=== PATIENT | female | born 1935 | race Caucasian/White ===

== ENCOUNTER 2021-03-03 08:28 | Day surgery (SDC) | payer MEDICARE, BC ==
[2021-03-03] MEDS ORDERED: Midazolam 1 MG/ML 2 ML SDV IV ONE (08:29)
[2021-03-03] MEDS ORDERED: Sodium Chloride 0.9% 10 ML Syringe IV ONE (08:29)
[2021-03-03] MEDS ORDERED: Dexamethasone 4 MG/ML SDV IV ONE (08:29)
[2021-03-03] MEDS ORDERED: Sodium Chloride 0.9% 10 ML Syringe FLUSH PRN (09:15)
[2021-03-03] MEDS ORDERED: Cataract Ophth Solution EYELF ONE (09:15)
[2021-03-03] MEDS ORDERED: Moxifloxacin 0.5% Ophth Soln 3 ML Bottle EYELF ONE (09:15)
[2021-03-03] MEDS ORDERED: Acetaminophen 325 MG Tab PO PRN (09:15)
[2021-03-03] MEDS ORDERED: Timolol Maleate 0.5% Ophth Soln 5 ML Bottle EYELF ONE (09:15)
[2021-03-03] MEDS ORDERED: Proparacaine 0.5% Ophth Soln 15 ML Bottle EYELF ONE (09:15)
[2021-03-03] MEDS ORDERED: Tropicamide 1% Ophth Soln 15 ML Bottle EYELF ONE (09:15)
[2021-03-03] MEDS ORDERED: Phenylephrine 10% Ophth Soln 5 ML Bot EYELF ONE (09:15)
[2021-03-03] MEDS ORDERED: Ondansetron 4 MG/2 ML SDV IVPUSH PRN (09:15)
[2021-03-03] MEDS ORDERED: Povidone-Iodine 5% Sterile Ophth Soln 30 ML Bottle EYELF ONE ×2 (09:15→10:32)
[2021-03-03] MEDS ORDERED: Acetaminophen/Codeine 300-30 MG Tab PO PRN (09:15)
[2021-03-03] MEDS ORDERED: Tetracaine HCl/PF 0.5% 4 ML Bottle EYELF ONE (10:31)
[2021-03-03] MEDS ORDERED: Apraclonidine 0.5% Ophth Soln 5 ML Bot EYELF ONE (10:32)
[2021-03-03] MEDS ORDERED: Diclofenac Sodium 0.1% Ophth Soln 5 ML Bottle EYELF ONE (10:32)
[2021-03-03] MEDS ORDERED: Vancomycin 500 MG SDV EYELF ONE (10:33)
[2021-03-03] MEDS ORDERED: Dexamethasone/Neomycin/Polymyxin B Ophth Oint 3.5 GM Tube EYELF ONE (10:33)
[2021-03-03] MEDS ORDERED: Balanced Salt Solution Ophth Irrig 500 ML Bottle IOCULAR ONE (10:33)
[2021-03-03] MEDS ORDERED: Chondroitin Sulfate/Hyaluronate Sodium Ophth Inj 0.75 ML Syringe EYELF ONE (10:33)
[2021-03-03] MEDS ORDERED: Lidocaine 1% 30 ML SDV ONE (10:33)
[2021-03-03] MEDS ORDERED: Balanced Salt Solution Ophth Irrig 15 ML Bottle EYELF ONE (10:39)
--- NOTE | 2021-03-04 06:57 | OR ---
DATE: 03/03/2021 PREOPERATIVE DIAGNOSIS: Visually significant mixed cataract, left eye. POSTOPERATIVE DIAGNOSIS: Visually significant mixed cataract, left eye. PROCEDURE: Extracapsular cataract extraction with intraocular lens implant, left eye. ANESTHESIA: Topical/local MAC. COMPLICATIONS: None. INDICATION: Ms. Alcantara was seen in the clinic. She has complained of difficulty with television, books, magazines, newspapers, pill bottles, difficulty driving. She saw her regular thermoforming machine operator. Dr. Alaniz was not able to improve her vision with a change in glasses. Examination revealed mixed cataract. I explained options, offered cataract surgery, and I explained risks including the potential for infection, retinal detachment, loss of vision, need for additional surgery, amongst others. We have discussed implant options. She has requested a mono focal implant. She is comfortable wearing glasses following surgery if necessary. OPERATIVE DESCRIPTION: After informed consent was obtained and the risks, benefits, and alternatives were explained, the patient was brought to the operative suite and topical anesthesia was administered. The patient was then prepped and draped in the sterile fashion and attention was placed on the left eye. A sterile lid speculum was placed into the left eye to allow operative exposure. A full-thickness paracentesis was made in the temporal portion of the operative eye. Preservative-free lidocaine 0.1 mL was injected into the anterior chamber followed by viscoelastic. A full-thickness corneal incision was then made into the anterior chamber. A bent needle cystotome was used to create a small jerome in the anterior capsule. The capsulorrhexis forceps was then used to create a 360-degree curvilinear capsulorrhexis. The nucleus was then removed using a phacoemulsification handpiece and the remaining cortical material was then removed with irrigation and aspiration handpiece. Following removal of the cortical material, the capsular bag was then inspected and noted to be free of any holes or tears. Viscoelastic was then injected into the capsular bag and the intraocular lens was inserted into the capsular bag. The viscoelastic material was then removed from both the anterior and posterior chambers and from behind the IOL. The lens and capsular bag were then reinspected. The IOL was well centered and the capsular bag intact. The wound and paracentesis sites were inspected and hydrated with balanced saline solution. Both were found to be self- sealing. The intraocular pressure was assessed digitally and found to be within normal range. A good red reflex was noted at the completion of the procedure. No complications occurred during the operation. At the completion of the procedure, Maxitrol, Voltaren, and Iopidine drops were placed into the operative eye. A sterile eye shield was placed over the operative eye and the patient was transported to the postoperative recovery area having tolerated the procedure well. Postoperative instructions were given along with a postoperative appointment. The patient was advised to call with any questions or concerns. [facility] /[id number]
== END 2021-03-03 11:40 | disposition home or self-care (01) ==
LOC: DL.SDS 08:28
PROVIDERS: ATTEND Ophthalmology
DX: H26.8 Other specified cataract (principal); D64.9 Anemia, unspecified; N18.9 Chronic kidney disease, unspecified; I48.91 Unspecified atrial fibrillation; E66.9 Obesity, unspecified; K21.9 Gastro-esophageal reflux disease without esophagitis; I12.9 Hypertensive chronic kidney disease with stage 1 through stage 4 chronic kidney disease, or unspecified chronic kidney disease; Z98.890 Other specified postprocedural states; Z87.891 Personal history of nicotine dependence; Z79.01 Long term (current) use of anticoagulants; Z79.899 Other long term (current) drug therapy; Z68.29 Body mass index [BMI] 29.0-29.9, adult
CPT/HCPCS: 00142; A9270-GY; J1100; J2250; J3370; V2632

== ENCOUNTER 2021-03-10 07:26 | Day surgery (SDC) | payer MEDICARE, BC ==
[2021-03-10] MEDS ORDERED: Dexamethasone 4 MG/ML SDV IV ONE (07:27)
[2021-03-10] MEDS ORDERED: Midazolam 1 MG/ML 2 ML SDV IV ONE (07:27)
[2021-03-10] MEDS ORDERED: Sodium Chloride 0.9% 10 ML Syringe IV ONE (07:27)
[2021-03-10] MEDS ORDERED: Cataract Ophth Solution EYERT ONE (08:14)
[2021-03-10] MEDS ORDERED: Ondansetron 4 MG/2 ML SDV IVPUSH PRN (08:30)
[2021-03-10] MEDS ORDERED: Moxifloxacin 0.5% Ophth Soln 3 ML Bottle EYERT ONE (08:30)
[2021-03-10] MEDS ORDERED: Phenylephrine 10% Ophth Soln 5 ML Bot EYERT PRN (08:30)
[2021-03-10] MEDS ORDERED: Timolol Maleate 0.5% Ophth Soln 5 ML Bottle EYERT ONE (08:30)
[2021-03-10] MEDS ORDERED: Proparacaine 0.5% Ophth Soln 15 ML Bottle EYERT ONE (08:30)
[2021-03-10] MEDS ORDERED: Tobramycin 0.3% Ophth Drops 5 ML Bottle EYERT ONE (08:30)
[2021-03-10] MEDS ORDERED: Acetaminophen/Codeine 300-30 MG Tab PO PRN (08:30)
[2021-03-10] MEDS ORDERED: Tropicamide 1% Ophth Soln 15 ML Bottle EYERT ONE (08:30)
[2021-03-10] MEDS ORDERED: Povidone-Iodine 5% Sterile Ophth Soln 30 ML Bottle EYERT ONE ×2 (08:30→09:21)
[2021-03-10] MEDS ORDERED: Acetaminophen 325 MG Tab PO PRN (08:30)
[2021-03-10] MEDS ORDERED: Sodium Chloride 0.9% 10 ML Syringe FLUSH PRN (08:30)
[2021-03-10] MEDS ORDERED: Tetracaine HCl/PF 0.5% 4 ML Bottle EYERT ONE (09:20)
[2021-03-10] MEDS ORDERED: Dexamethasone/Neomycin/Polymyxin B Ophth Oint 3.5 GM Tube EYERT ONE (09:21)
[2021-03-10] MEDS ORDERED: Diclofenac Sodium 0.1% Ophth Soln 5 ML Bottle EYERT ONE (09:21)
[2021-03-10] MEDS ORDERED: Lidocaine 1% 30 ML SDV ONE (09:21)
[2021-03-10] MEDS ORDERED: Apraclonidine 0.5% Ophth Soln 5 ML Bot EYERT ONE (09:21)
[2021-03-10] MEDS ORDERED: Balanced Salt Solution Ophth Irrig 500 ML Bottle IOCULAR ONE (09:22)
[2021-03-10] MEDS ORDERED: Chondroitin Sulfate/Hyaluronate Sodium Ophth Inj 0.75 ML Syringe EYERT ONE (09:22)
[2021-03-10] MEDS ORDERED: Vancomycin 500 MG SDV EYERT ONE (09:22)
--- NOTE | 2021-03-10 18:30 | OR ---
DATE: 03/10/2021 PREOPERATIVE DIAGNOSIS: Visually significant mixed cataract, right eye. POSTOPERATIVE DIAGNOSIS: Visually significant mixed cataract, right eye. PROCEDURE: Extracapsular cataract extraction with intraocular lens implant, right eye. ANESTHESIA: Topical/local MAC. COMPLICATIONS: None. INDICATION: Ms. Alcantara was seen in the clinic. She is unhappy with her vision noticing a slow progressive change. She has difficulty seeing television, books, magazines, newspapers, pill bottles, phone books, difficulty seeing at distance, difficulty with bright lights and glare. She saw her regular travograph operator, Dr. Alaniz. Dr. Alaniz was not able to improve her vision and meet her needs with a change in glasses. Examination revealed mixed cataract. I have explained options, offered cataract surgery, and I explained risks including the potential for infection, retinal detachment, loss of vision, need for additional surgery, and risks associated with anesthesia. We discussed implant options. She has requested a mono focal implant, she is comfortable wearing glasses following surgery if necessary. OPERATIVE DESCRIPTION: After informed consent was obtained and the risks, benefits, and alternatives were explained, the patient was brought to the operative suite and topical anesthesia was administered. The patient was then prepped and draped in the sterile fashion and attention was placed on the right eye. A sterile lid speculum was placed into the right eye to allow operative exposure. A full-thickness paracentesis was made in the temporal portion of the operative eye. Preservative-free lidocaine 0.1 mL was injected into the anterior chamber followed by viscoelastic. A full-thickness corneal incision was then made into the anterior chamber. A bent needle cystotome was used to create a small jerome in the anterior capsule. The capsulorrhexis forceps was then used to create a 360-degree curvilinear capsulorrhexis. The nucleus was then removed using a phacoemulsification handpiece and the remaining cortical material was then removed with irrigation and aspiration handpiece. Following removal of the cortical material, the capsular bag was then inspected and noted to be free of any holes or tears. Viscoelastic was then injected into the capsular bag and the intraocular lens was inserted into the capsular bag. The viscoelastic material was then removed from both the anterior and posterior chambers and from behind the IOL. The lens and capsular bag were then reinspected. The IOL was well centered and the capsular bag intact. The wound and paracentesis sites were inspected and hydrated with balanced saline solution. Both were found to be self- sealing. The intraocular pressure was assessed digitally and found to be within normal range. A good red reflex was noted at the completion of the procedure. No complications occurred during the operation. At the completion of the procedure, Maxitrol, Voltaren, and Iopidine drops were placed into the operative eye. A sterile eye shield was placed over the operative eye and the patient was transported to the postoperative recovery area having tolerated the procedure well. Postoperative instructions were given along with a postoperative appointment. The patient was advised to call with any questions or concerns. [facility] /[id number]
== END 2021-03-10 10:50 | disposition home or self-care (01) ==
LOC: DL.SDS 07:26
PROVIDERS: ATTEND Ophthalmology
DX: H26.8 Other specified cataract (principal); N18.9 Chronic kidney disease, unspecified; K21.9 Gastro-esophageal reflux disease without esophagitis; I48.91 Unspecified atrial fibrillation; E66.9 Obesity, unspecified; Z98.890 Other specified postprocedural states; Z87.891 Personal history of nicotine dependence; Z68.29 Body mass index [BMI] 29.0-29.9, adult
CPT/HCPCS: 00142; A9270-GY; J1100; J2250; J3370; V2632